=== PATIENT | female | born 1945 | race Caucasian/White ===

== ENCOUNTER 2020-02-20 19:18 | Inpatient (IN) | payer MEDICARE, OTHER ==
[2020-02-20 19:46] LABS: #Basophils 0.1 thou/uL (0.0-0.2); #Eosinphils 0.3 thou/uL (0.0-0.7); #Lymphocytes 1.8 thou/uL (1.20-3.40); %Basophils 0.7 % (0.0-1.0); %Eosinophils 2.1 % (0.0-10.0); %Lymphocytes 15.1 % (21.0-51.0); %Monocytes 8.2 % (0.0-10.0); %Neutrophils 73.9 % (42.0-75.0); Hemoglobin 11.9 g/dL (12.0-16.0); Mean Corpuscular HGB CONC 31.9 g/dL (32.0-36.0); Mean Corpuscular Hemoglobin 29.3 pg (27.0-31.0); Mean Corpuscular Volume 91.8 fL (78.0-98.0); Mean Platelet Volume 7.8 fL (7.4-10.4); Platelet Count 221 thou/uL (130-400); RBC Distribution Width 13.6 % (11.5-14.5); Red Blood Cell (RBC) Count 4.06 mill/uL (4.20-5.40); White Blood Cell (WBC) Count 12.2 thou/uL (4.8-10.8)
[2020-02-20 20:14] LABS: ALT (SGPT) 11 U/L (8-55); AST (SGOT) 12 U/L (5-34); Albumin 3.8 g/dL (3.4-4.8); Alkaline Phosphatase 119 U/L (40-110); Anion Gap 12 mmol/L (10-20); BUN (Urea Nitrogen) 25 mg/dL (9.8-20.1); Bilirubin, Total 0.4 mg/dL (0.2-1.2); Calc. Creatinine Clearance 0 mL/min (70-130); Calcium 9.3 mg/dL (7.8-10.44); Carbon Dioxide 20 mmol/L (23-31); Chloride 109 mmol/L (98-107); Estimated GFR-MDRD 46; Globulin 3.3 g/dL (2.4-3.5); Glucose 114 mg/dL (83-110); Potassium 4.2 mmol/L (3.5-5.1); Protein, Total 7.1 g/dL (6.0-8.3); Sodium 137 mmol/L (136-145)
--- NOTE | 2020-02-20 20:16 | RAD ---
XR Pelvis AP STANDARD History: Fall. Left hip injury Comparison: Radiograph 2018 Findings: Intertrochanteric fracture left femur with minimal varus angulation and moderate medial dis placement of the lesser trochanter. Impression: Intertrochanteric fracture left femur.
--- NOTE | 2020-02-20 20:17 | RAD ---
XR Hip Lt 2-3 View History: Fall with injury Comparison: None. Findings: Intertrochanteric fracture left femur with moderate medial displacement of the lesser troch anter. Moderate vascular calcifications. Left obturator ring appears be intact. Impression: Intertrochanteric fracture left femur.
--- NOTE | 2020-02-20 20:19 | RAD ---
XR Chest 1 View Portable History: Fall Comparison: Radiograph 2018 Findings: Heart size mildly enlarged. No confluent airspace consolidation, pneumothorax or effusion. Age-indeterminate right fifth through eighth rib fractures. No left-sided rib fractures. Impression: Age-indeterminate right fifth through eighth fractures otherwise no acute intrathoracic a bnormality. Given lack of adjacent extrapleural fluid, these may be chronic.
[2020-02-20] MEDS ORDERED: Ondansetron PF 4 MG/2 ML Vial ONE (20:38)
[2020-02-20] MEDS ORDERED: Morphine 4 MG/ML VIAL ONE ×2 (20:38→21:45)
--- NOTE | 2020-02-20 20:46 | CT ---
NONCONTRAST CT HEAD: 02/20/20 HISTORY: Injury after a fall. COMPARISON: None. FINDINGS: There is motion artifact present on several images. Diminished areas of attenuation are seen within the periventricular white matter which are nonspecifi c but likely reflective of chronic small vessel ischemic changes. There is no evidence of an acute co rtical infarction, hemorrhage, mass effect or midline shift. Mild cerebral volume loss is present. The ventricular system is normal in size, shape and position. There is trace amount of mucosal thickening in the ethmoidal air cells. Mastoid air cells are clear. No depressed calvarial fracture is seen. IMPRESSION: No acute intracranial abnormality demonstrated. POS: K[facility]
--- NOTE | 2020-02-20 21:26 | CT ---
NONCONTRAST CT CERVICAL SPINE 02/20/20 HISTORY: Injury after ground level fall. TECHNIQUE: Contiguous axial CT images are obtained through the cervical spine from the skull base to the T1-2 le chapo. Sagittal and coronal reformat images are provided. FINDINGS: There are multilevel degenerative changes seen throughout the cervical spine with narrowing of the in tervertebral disc spaces at multiple levels with end plate degenerative changes also present at multi ple levels. Facet hypertrophic changes are present. Moderate left sided neural foraminal narrowing is present at the C3-4 level with moderate to severe bilateral neural foraminal narrowing at C4-5 and C 5-6 levels related to prominent facet hypertrophic changes and posterior osteophyte formation. The ne ural foraminal narrowing at C4-5 level is also secondary to anterolisthesis of C4 on C5 with a degree of anterolisthesis measuring approximately 4 mm. Anterolisthesis is likely attributable to the facet degenerative changes at this level. Trace anterolisthesis of C7 on T1 is present again related to facet degenerative changes. The vertebral body heights are within normal limits, and no fracture is identified. Mild degrees of c entral canal narrowing are present at the C5-6 and C6-7 levels. The prevertebral soft tissues are within normal limits. There is heterogeneity of the right lobe of the thyroid gland with suggestion of multiple small hypod ense nodules. There is a dominant nodule with peripheral calcifications seen in the left lobe of the thyroid gland measuring 1.9 cm. Thyroid ultrasound is recommended. Vascular calcifications are seen in the carotid arteries. Emphysematous changes are seen in the visualized lung apices. IMPRESSION: 1. Hypodense nodule left lobe of the thyroid gland. Thyroid ultrasound is recommended for furthe r evaluation. 2. Multilevel degenerative changes in the cervical spine. 3. Mild anterolisthesis of C4 on C5 and trace anterolisthesis of C7 on T1 likely on the basis of facet degenerative changes. 4. No fracture is seen involving the cervical spine. POS: CARLA
[2020-02-20] MEDS ORDERED: Morphine 4 MG/ML VIAL SLOW IVP PRN (21:51)
[2020-02-20] MEDS ORDERED: hydrALAZINE 20 MG/ML VIAL SLOW IVP PRN (21:51)
[2020-02-20] MEDS ORDERED: Dextrose 50% Abboject 50 ML SYRINGE SLOW IVP PRN (21:51)
[2020-02-20] MEDS ORDERED: Dextrose 5% in Water 1,000 ML IV PRN (21:51)
[2020-02-20] MEDS ORDERED: Ondansetron PF 4 MG/2 ML Vial IVP PRN (21:51)
[2020-02-20] MEDS ORDERED: traMADol HCl 50 MG TAB PO PRN (21:55)
[2020-02-20] MEDS ORDERED: Acetaminophen 500 MG TAB PO SCH (22:00)
[2020-02-20 22:01] LABS: PTT 30.9 sec (22.9-36.1); Prothrombin Time 13.4 sec (12.0-14.7)
[2020-02-20 22:12] LABS: Magnesium 1.7 mg/dL (1.6-2.6); Phosphorus 2.9 mg/dL (2.3-4.7)
--- NOTE | 2020-02-20 23:15 | HP ---
TRAUMA SURGEON: Dr. Olivarez. CONSULTING PHYSICIAN: Dr. Middleton. HISTORY OF PRESENT ILLNESS: The patient is a 75-year-old female, who presented to the emergency department via EMS after she had a mechanical fall at home. The patient usually uses a walker. However, she was not using it and holding onto the back of the kitchen chair. She reports that her left leg gave out and she fell onto her left side. Denies hitting her head, anticoagulation use and loss of consciousness. The patient reports that she has been having some pain and numbness to her left lower extremity for which she was scheduled to receive lower back injections next week. She denies numbness and tingling in her bilateral upper and right lower extremity. Reports that the pain and tingling sensation is the same as before her fall in the left lower extremity. Denies chest pain, shortness of breath, abdominal pain, nausea, vomiting. REVIEW OF SYSTEMS: All additional 10-point review of systems negative except as indicated above. PAST MEDICAL HISTORY: Recently diagnosed with end-stage renal disease on dialysis for NSAID use. In the past few months, the patient has stopped dialysis, because she has had a significant improvement in her kidney disease. She also has an aortic aneurysm, chronic left lower extremity pain, hypertension and cardiac stents, status post [place]. PAST SURGICAL HISTORY: Appendectomy and cholecystectomy. SOCIAL HISTORY: The patient lives at home with her son and [id number]. She uses a walker to get around. 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 MEDICATIONS: 1. Hydralazine 50 mg t.i.d. 2. Metoprolol 100 mg b.i.d. 3. Dicyclomine. 4. Rosuvastatin. ALLERGIES: NO KNOWN DRUG ALLERGIES. PHYSICAL EXAMINATION: VITAL SIGNS: Temperature 98.7, pulse 72, respirations 16, oxygen saturation 95% on room air, blood pressure 126/76. PRIMARY SURVEY: Airway intact. Adequate breath sounds bilaterally. 2+ pulses in bilateral radials, femorals, and DPs. GCS 15. Gross motor and sensation intact. No lacerations bruising or external bleeding. SECONDARY SURVEY: HEAD: Normocephalic. No gross palpable skull deformities. EYES: Pupils 3-2, equal, round, reactive to light bilaterally. ENT: No signs of trauma. NECK: C-spine, no deformities. Nontender. C-collar not in place. CHEST: Nontender. No crepitus, no abrasions or ecchymosis. ABDOMEN: Soft, nontender, nondistended. PELVIS: Stable to palpation and nontender. RECTAL: Deferred. GENITOURINARY: Deferred. EXTREMITIES: Left lower extremity slightly shortened when compared to the right. There is tenderness over the anterior and lateral proximal thigh. No abrasions or ecchymosis. 2+ pulses noted in the bilateral radials, femorals and DPs. BACK/SPINE: No step-offs, deformities, or tenderness to palpation of the thoracic or lumbar spine. No abrasions or ecchymosis noted. NEUROLOGIC: 5/5 strength in bilateral slicing machine tender, plantar flexion, dorsiflexion, gross normal sensation x4 extremities. LABORATORY FINDINGS: White count 12.2, hemoglobin 11.7, hematocrit 37.2, platelets 221. Sodium 137, potassium 4.2, chloride 109, bicarb 20, BUN 25, creatinine 1.16, glucose 114, total bilirubin 0.4, AST 12, ALT 11, alkaline phosphatase 19, INR 1.2, PTT 30.9. DIAGNOSTIC FINDINGS: 1. CT of the brain demonstrates no acute intracranial abnormalities demonstrated. 2. X-ray of the pelvis demonstrates intertrochanteric fracture of the left femur. 3. CT of the C-spine demonstrates hypodense nodule of left lobe of the thyroid gland. Thyroid ultrasound is recommended. Multilevel degenerative changes in the cervical spine. Mild anterior listhesis of C4 on C5 and trace anterolisthesis of C7 on T1, likely on the basis of facet degenerative changes. No fractures seen including the cervical spine. 4. Chest x-ray demonstrates age-indeterminate right 5th through 8th fractures with no acute intrathoracic abnormalities, lack of adjacent extrapleural fluid. These findings may be chronic. 5. X-ray of the left hip demonstrates intertrochanteric fracture of the left hip. ASSESSMENT: 1. Status post mechanical fall from standing. 2. Left intertrochanteric femur fracture. 3. Chronic kidney disease, unknown new baseline BUN and creatinine. We will continue to monitor. 4. Thyroid nodule. 5. History of end-stage renal disease, on dialysis due to non-steroidal anti-inflammatory drugs, now resolved. 6. History of left lower extremity numbness, aortic aneurysm, hypertension, cardiac stents, and myocardial infarction. PLAN: The patient will be admitted to the Trauma Service. She will go to the regular surgical nursing floor. Dr. Middletno to evaluate the patient in the morning and take her to the OR for fixation of the left intertrochanteric femur fracture. She has received 1 L of IV fluids in the emergency department for a systolic in the 90s. We will hold off on additional fluid resuscitation and we will repeat blood work in the morning. Follow up magnesium, phosphorus and replace, if indicated. Restart patient's hydralazine and metoprolol with hold parameters. The patient will likely need placement at acute rehab facility postoperatively. This patient was discussed with Dr. Olivarez before this dictation. Job ID: [id number]
[2020-02-20 23:49] LABS: Bilirubin Negative (Negative); Blood, Urine Negative (Negative); Clarity Clear (Clear); Glucose, Urine (Dipstick) Normal (Negative); Ketone, Urine Negative (Negative); Leukocyte Negative Leu/uL (Negative); Nitrite Negative (Negative); Protein, Urine (Dipstick) 10 mg/dL (Neg-Trace); Specific Gravity, Urine 1.019 (1.002-1.036); Urobilinogen Normal mg/dL (Less than 2); pH, Urine 5.5 (5.0-9.0)
[2020-02-21] MEDS ORDERED: Sodium Phosphate 15 MMOL in Sodium Chloride 0.9% 250 ML 250 ML IVPB SCH (01:00)
[2020-02-21] MEDS ORDERED: Magnesium 2 GM/50 ML 2 GM in Premix Bag 1 BAG IVPB SCH (01:00)
[2020-02-21] MEDS: traMADol HCl 50 MG TAB PO PRN ×3 (01:51→20:27)
[2020-02-21] MEDS: Cyclobenzaprine 10 MG TAB PO PRN ×2 (01:51→22:48)
[2020-02-21] MEDS: Acetaminophen 500 MG TAB PO SCH ×5 (01:58→17:18)
[2020-02-21 02:12] VITALS: BMI 25.8
[2020-02-21 06:16] LABS: #Basophils 0.1 thou/uL (0.0-0.2); #Eosinphils 0.2 thou/uL (0.0-0.7); #Lymphocytes 2.3 thou/uL (1.20-3.40); #Monocytes 0.9 thou/uL (0.11-0.59); %Basophils 0.7 % (0.0-1.0); %Eosinophils 2.3 % (0.0-10.0); %Lymphocytes 27.3 % (21.0-51.0); %Monocytes 10.6 % (0.0-10.0); %Neutrophils 59.1 % (42.0-75.0); Hemoglobin 9.8 g/dL (12.0-16.0); Mean Corpuscular HGB CONC 31.7 g/dL (32.0-36.0); Mean Corpuscular Hemoglobin 29.3 pg (27.0-31.0); Mean Corpuscular Volume 92.3 fL (78.0-98.0); Mean Platelet Volume 8.1 fL (7.4-10.4); Platelet Count 179 thou/uL (130-400); RBC Distribution Width 13.6 % (11.5-14.5); Red Blood Cell (RBC) Count 3.36 mill/uL (4.20-5.40); White Blood Cell (WBC) Count 8.5 thou/uL (4.8-10.8)
[2020-02-21 06:36] LABS: Anion Gap 10 mmol/L (10-20); BUN (Urea Nitrogen) 22 mg/dL (9.8-20.1); Calc. Creatinine Clearance 54 mL/min (70-130); Calcium 8.4 mg/dL (7.8-10.44); Carbon Dioxide 23 mmol/L (23-31); Chloride 109 mmol/L (98-107); Estimated GFR-MDRD 48; Glucose 111 mg/dL (83-110); Magnesium 2.6 mg/dL (1.6-2.6); Phosphorus 4.2 mg/dL (2.3-4.7); Sodium 138 mmol/L (136-145)
[2020-02-21] MEDS ORDERED: CEFAZOLIN 2 GM in Premix Bag 1 BAG IVPB SCH (08:00)
[2020-02-21] MEDS ORDERED: Tranexamic Acid 1,000 MG in Sodium Chloride 0.9% 250 ML 250 ML IVPB SCH (08:00)
--- NOTE | 2020-02-21 08:24 | CON ---
DATE OF CONSULTATION: HISTORY OF PRESENT ILLNESS: Ms. Nieves is a pleasant 75-year-old female who presents after a ground level fall. The patient normally uses a walker, but she states she walked away and fell directly on to her left hip from mechanical fall. The patient denies loss of consciousness, is resting comfortably in bed. The patient lives with her daughter and her . PAST MEDICAL HISTORY: Includes end-stage renal disease, no longer on dialysis after resolution secondary to NSAIDs; aortic aneurysm; chronic lower extremity pain; hypertension; coronary artery disease; history of [place] 6 years ago. PAST SURGICAL HISTORY: Appendectomy as well as cholecystectomy. MEDICATIONS: 1. Hydralazine. 2. Toprol. 3. . ALLERGIES: NO KNOWN DRUG ALLERGIES. SOCIAL HISTORY: The patient lives with her daughter and son. She is ambulating with a walker. She is currently no longer working. REVIEW OF SYSTEMS: Negative for 10-point review except for as above. PHYSICAL EXAMINATION: VITAL SIGNS: This morning, temperature 97, heart rate 77, respirations 17, O2 saturation 96% on 2 L, blood pressure 108/69. GENERAL: Alert and oriented female in no acute distress. EXTREMITIES: Left lower extremity shows shortened and externally rotated limb. She has palpable pulses, good cap refill. She has no knee effusion. SKIN: Clean, dry, and intact. No wounds. MUSCULOSKELETAL: She has pain with internal and external rotation of her hip. Pelvis stable to AP and lateral compression. LABORATORY DATA: She has H and H of 9.8 and 31. INR of 1. She has chemistry, creatinine of 1.12 and a glucose of 111. Her UA is negative. COVID test is pending. The patient's hip x-ray shows a left intertrochanteric hip fracture. Her C-spine shows degenerative changes without signs of acute fracture, and her brain CT shows no signs of acute intracranial hemorrhaging. IMPRESSION: 1. Left intertrochanteric hip fracture. 2. Chronic kidney disease. 3. Coronary artery disease. 4. Mechanical fall. ASSESSMENT AND PLAN: The patient will be taken to the operating suite today for a left trochanteric fixation nail for left intertrochanteric hip fracture. I discussed with the patient to mobilize her that we would require fixation to get up and get her walking to improve her mortality. I discussed the risks and benefits of surgery to include pain, scar, bleeding, infection, decreased range of motion and strength, fracture above or below the stem, need for further surgeries, blood clots, loss of life or limb. The patient understands these risks and benefits and elected to proceed. The patient will need a rapid COVID test as one is currently pending. She will be taken to the operating suite this afternoon. We will give her preoperative antibiotics as well as tranexamic acid to decrease her transfusion rate. Job ID: [id number]
[2020-02-21] MEDS: Gabapentin 100 MG CAP PO SCH ×3 (08:42→20:27)
[2020-02-21] MEDS: Famotidine/PF 20 mg/2ml Vial SLOW IVP SCH (08:42)
[2020-02-21] MEDS: Senokot S 8.6-50 MG TAB PO SCH ×2 (08:43→20:27)
[2020-02-21] MEDS: Polyethylene Glycol 3350 17 GM Packet PO SCH (08:43)
[2020-02-21] MEDS ORDERED: Metoprolol Tartrate 100 MG TAB PO SCH (09:00)
[2020-02-21 09:34] LABS: SARS-CoV-2 NAA Rapid Test Not Detected (NotDetected)
[2020-02-21] MEDS ORDERED: Tranexamic Acid 1,000 MG/10 ML VIAL ONE (10:31)
[2020-02-21] MEDS ORDERED: Sodium Chloride 0.9% 100 ML ONE (10:32)
[2020-02-21] MEDS ORDERED: Ondansetron PF 4 MG/2 ML Vial ONE (10:46)
[2020-02-21] MEDS ORDERED: Lidocaine 1% PF 5 ML VIAL ONE (10:46)
[2020-02-21] MEDS ORDERED: Rocuronium Bromide 10 MG/ML (10ML VIAL) ONE (10:46)
[2020-02-21] MEDS ORDERED: PROPOFOL 200 MG/20 ML VIAL ONE (10:46)
[2020-02-21] MEDS ORDERED: Dexamethasone 20 MG/5 ML VIAL ONE (10:46)
[2020-02-21] MEDS ORDERED: Glycopyrrolate 0.2 MG/ML 5 ML SYRINGE ONE (10:46)
[2020-02-21] MEDS ORDERED: PHENYLEPHRINE-NS 100 MCG/ML 10 ML SYRINGE ONE (10:46)
[2020-02-21] MEDS ORDERED: EPHEDRINE 25 MG/5 ML SYRINGE ONE (10:46)
[2020-02-21] MEDS ORDERED: Phenylephrine 10 MG/ML VIAL ONE (10:57)
[2020-02-21] MEDS ORDERED: Fentanyl 100 MCG/2 ML VIAL ONE ×3 (10:57→12:38)
[2020-02-21] MEDS ORDERED: Promethazine HCl 25 MG/ML VIAL IM PRN (12:19)
[2020-02-21] MEDS ORDERED: Promethazine HCl 25 MG/ML VIAL SLOW IVP PRN (12:19)
[2020-02-21] MEDS ORDERED: Ondansetron HCl/PF 4 MG/2 ML Vial IVP PRN (12:19)
[2020-02-21] MEDS ORDERED: PACU-Morphine 4MG/ML VIAL SLOW IVP PRN (12:19)
--- NOTE | 2020-02-21 13:43 | EKG ---
Test Reason : Blood Pressure : / mmHG Vent. Rate : 070 BPM Atrial Rate : 070 BPM P-R Int : 126 ms QRS Dur : 144 ms QT Int : 448 ms P-R-T Axes : 050 -04 049 degrees QTc Int : 483 ms Sinus rhythm with occasional Premature ventricular complexes Left bundle branch block Abnormal ECG Confirmed by LEILANI HARRIS DO ([id number]), purchase request editor OLIVER PLATT ([id number]) on 02/21/2020 1:43:23 PM Referred By: Confirmed By:LEILANI HARRIS DO
--- NOTE | 2020-02-21 14:24 | RAD ---
EXAM: LEFT HIP TWO VIEWS: 02/21/20 HISTORY: ORIF, trochanteric nail. FINDINGS: Left hip nail and compression screw placed stabilizing a comminuted intertrochanteric fracture with i mprovement in position and alignment. IMPRESSION: Stabilization comminuted intertrochanteric fracture with improved position and alignment. POS: OFF
--- NOTE | 2020-02-21 16:58 | PRG ---
DATE OF SERVICE: 02/21/2020 SUBJECTIVE: Ms. Nieves is a 75-year-old female presenting to the emergency department. In ER, she is post injury day #1, postop day 0 after ORIF of a left intertrochanteric femur fracture repair by Dr. Middleton. The patient was found in the room. Her pain is controlled. She is hemodynamically stable. Surgery went well. No complaints. Of note, she has mild hypotension after given morphine postoperatively, however, she is still producing urine. Mental status is preserved. OBJECTIVE: VITAL SIGNS: Today, temperature is 97.9, blood pressure is 94/62, heart rate is 68, breathing 20 times per minute, saturating 97% on 2 L oxygen nasal cannula. GENERAL: A 75-year-old female, lying semi-Hawthorne's. No acute distress. HEENT: Normocephalic, atraumatic. Trachea is midline. No JVD is appreciated. RESPIRATORY: Equal rise and fall. Bilateral breath sounds. Clear to auscultation in upper and lower lobes bilaterally. CARDIOVASCULAR: Regular rate and rhythm. ABDOMEN: Soft and nontender. Pelvis is stable. MUSCULOSKELETAL: She has surgical scar about the left hip. Dressing is dry. EXTREMITIES: She is able to move her extremities. She has warm distal extremities. Good sensation. NEURO: Alert and oriented to person, place, time, and event. PSYCH: Normal mood and affect. LABORATORY DATA: Today white blood cell count 8.5, platelets 179, hemoglobin and hematocrit 9.8 and 31.0 respectively. Sodium is 138, potassium 4.0, chloride is 109, CO2 is 23, BUN is 22, creatinine 1.12, glucose is 111, phos is 4.2, and Mag is 2.6. ASSESSMENT: 1. Left intertrochanteric hip fracture, status post ORIF. 2. Acute traumatic pain. 3. 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 4. Thyroid nodule. 5. History of aortic aneurysm, hypertension, cardiac stents, myocardial infarction. PLAN: 1. We will continue all supportive care. 2. Continue saline at 75 mL/h for the remainder 1 L that is there. She appears a little volume contracted and wants to protect her kidneys given her previous ESRD. The patient is still producing good urine. 3. We will remove the Roy catheter. 4. Continue pain control. 5. We will continue home medications. Holding antihypertensives given the borderline hypertension today. 6. PT, OT ordered to the patient. 7. Rehab screen has been placed. I have updated the patient. There are no family at the bedside to update. Coordinate care with the bedside RN. Job ID: [id number] MTDD
[2020-02-21] MEDS: CEFAZOLIN 2 GM in Premix Bag 1 BAG IVPB SCH (17:20)
--- NOTE | 2020-02-21 19:33 | OP ---
DATE OF PROCEDURE: 02/21/2020 PREOPERATIVE DIAGNOSIS: Left intertrochanteric hip fracture. POSTOPERATIVE DIAGNOSIS: Left intertrochanteric hip fracture. PROCEDURE PERFORMED: Left short intramedullary trochanteric fixation nail. DRONE SOFTWARE DEVELOPMENT ENGINEER: Tony Gallegos PA-C ANESTHESIOLOGIST: Dr. Fragoso. ANESTHESIA: The patient received general endotracheal intubation. ESTIMATED BLOOD LOSS: 100 mL. TOURNIQUET TIME: None. ANTIBIOTICS: Ancef 2 g and TXA 1 g. The patient had a Synthes 11 x 170 mm TFNA nail with a 95 mm fenestrated screw and a 5 mm distal locking screw. COMPLICATIONS: None. HISTORY OF PRESENT ILLNESS: Ms. Nieves is a 75-year-old female, status post ground level fall. The patient has history of recent kidney disease, coronary artery disease. Now she uses a walker to ambulate. The patient had intertrochanteric hip fracture. I discussed the risks and benefits of surgery, pain, scar, bleeding, infection, damage to vital structures, decreased range of motion or strength, need for further surgeries, failure of procedures despite surgical intervention, loss of life or limb, risk of blood clots. The patient understood the risks and benefits and elected to proceed. DESCRIPTION OF PROCEDURE: After informed consent was obtained in the preoperative holding area, the patient received preoperative antibiotics, was taken to the operative suite and positioned appropriately on the fracture table, and after adequate anesthesia was obtained, the patient was positioned appropriately. The left hip was then visualized using fluoroscopy. In-line longitudinal traction and reduction maneuvers were performed until near anatomic reduction was obtained. The left hip and lower extremity were then prepped and draped in usual sterile fashion. Prior to incision, a time-out was called and all members of the surgical team agreed upon site, surgeon, and patient. Once this was completed, a longitudinal incision was made 2 fingerbreadths above the tip of the trochanter noted by palpation. The IT band was then incised sharply. The tip of the trochanter was palpated and using the posterior 1/3 of the trochanter, the guidepin was then placed down the length of the canal. This was confirmed in 2 planes with fluoroscopy. The 15 mm opening reamer was then used to open the tip of the trochanter and the nail was then slid down and malleted firmly into place. The outrigger was then used to place the lag screw guide pin. We chose posterior inferior screw placement and this was over reamed with the lateral cortex reamer and intramedullary reaming was carried up to the appropriate length. The pin was then used to guide the lag screw in place and we used minimal reduction in compression to accomplish this. Once completed, the guidepin was then removed and the outrigger was used to place the distal interlocking screw. We chose a 2-incision technique to perform this. The locking gate was closed on the lag screw. The outrigger was removed and final fluoroscopic films were obtained in AP, lateral, and a 20-degree trauma oblique. Happy with that anatomic reduction, both incisions were copiously irrigated with normal saline and primary closure was accomplished with a 0 in the IT band and 2-0 in subcutaneous layer and stainless steel royal were used to reapproximate the skin. Sterile dressings were applied to both incisions. Procedure was terminated without any complications. The patient was removed from the fracture table, taken to the recovery room in stable condition. Job ID: [id number]
[2020-02-21] MEDS: Rosuvastatin 20 MG TAB PO SCH (20:27)
[2020-02-22] MEDS: CEFAZOLIN 2 GM in Premix Bag 1 BAG IVPB SCH (01:07)
[2020-02-22] MEDS: Acetaminophen 500 MG TAB PO SCH ×5 (01:07→23:30)
[2020-02-22] MEDS: Morphine 2 MG/ML VIAL SLOW IVP PRN ×2 (01:07→13:18)
[2020-02-22] MEDS ORDERED: Morphine 4 MG/ML VIAL SLOW IVP SCH (03:15)
[2020-02-22] MEDS: Senokot S 8.6-50 MG TAB PO SCH ×2 (08:31→20:15)
[2020-02-22] MEDS: Famotidine/PF 20 mg/2ml Vial SLOW IVP SCH (08:31)
[2020-02-22] MEDS: Gabapentin 100 MG CAP PO SCH ×4 (08:31→20:15)
[2020-02-22] MEDS: Polyethylene Glycol 3350 17 GM Packet PO SCH (08:31)
[2020-02-22] MEDS: Metoprolol Tartrate 100 MG TAB PO SCH ×2 (09:48→20:12)
[2020-02-22] MEDS: Aspirin 81 mg Enteric Coated Tablet PO SCH ×2 (09:48→20:15)
[2020-02-22] MEDS: traMADol HCl 50 MG TAB PO SCH ×3 (12:04→23:30)
[2020-02-22] MEDS: Cyclobenzaprine 10 MG TAB PO PRN (13:17)
[2020-02-22] MEDS ORDERED: Ibuprofen 600 MG TAB PO SCH (14:00)
[2020-02-22 15:23] LABS: #Lymphocytes 1.2 thou/uL (1.20-3.40); #Monocytes 1.4 thou/uL (0.11-0.59); #Neutrophils 10.4 thou/uL (1.40-6.50); %Basophils 0.1 % (0.0-1.0); %Eosinophils 0.1 % (0.0-10.0); %Lymphocytes 9.1 % (21.0-51.0); %Monocytes 10.8 % (0.0-10.0); Hemoglobin 8.8 g/dL (12.0-16.0); Mean Corpuscular HGB CONC 32.5 g/dL (32.0-36.0); Mean Corpuscular Hemoglobin 29.8 pg (27.0-31.0); Mean Corpuscular Volume 91.7 fL (78.0-98.0); Mean Platelet Volume 7.9 fL (7.4-10.4); Platelet Count 163 thou/uL (130-400); RBC Distribution Width 13.6 % (11.5-14.5); Red Blood Cell (RBC) Count 2.94 mill/uL (4.20-5.40)
--- NOTE | 2020-02-22 15:39 | PRG ---
DATE OF SERVICE: 02/22/2020 SUBJECTIVE: This is a 75-year-old female postop day #1, post injury day #2, status post fall with left intertrochanteric femur fracture repair by Dr. Middleton. The patient has restless legs and difficult night until she got her medications. States that she is better and she is found sitting up in bed, tolerating a diet. No acute distress. Remains hemodynamically stable. However, her blood pressure has been lower than her baseline since the OR. She is producing urine. OBJECTIVE: VITAL SIGNS: Temperature is 98.0, blood pressure 121/70, heart rate is 75, respiratory rate is 16, and saturating 94% on her on 1.5 L nasal cannula. GENERAL: A 75-year-old female, sitting up, in no acute distress. HEENT: Normocephalic, atraumatic. Trachea is midline. RESPIRATORY: Equal rise and fall. Bilateral breath sounds. Clear. CARDIOVASCULAR: Regular rate and rhythm. ABDOMEN: Soft, nontender. PELVIS: Stable. MUSCULOSKELETAL: She has a surgical incision with a dry dressing. No edema. NEUROLOGIC: Alert and oriented to person, place, time, and event. PSYCHIATRIC: Normal mood and affect. SKIN: Warm and dry. DIAGNOSTIC DATA: There is no laboratory data to review today. ASSESSMENT AND PLAN: 1. Left intertrochanteric hip fracture, status post open reduction and internal fixation. 2. Acute traumatic pain. 3. Chronic kidney disease. 4. Thyroid nodule. 5. History of aortic aneurysm, hypertension, stents, and myocardial infarction. We will continue supportive care. Check chemistry and cbc now Stop NSAIDs given nephropathy from NSAIDs in past. Creatinine is acceptable last check. Reduce metoprolol to 50 b.i.d. from 100 b.i.d. with hold parameters. Continue patient's home ropinirole. Continue pain regimen. Remove Roy catheter today. We will repeat laboratories in the morning. Continue to work with physical therapy and occupational therapy. Rehab screen has been placed. Continue all other supportive care. I have updated the patient at the bedside and coordinated with the bedside RN. No family to update. Job ID: [id number] MTDD
[2020-02-22 15:43] LABS: Anion Gap 12 mmol/L (10-20); BUN (Urea Nitrogen) 17 mg/dL (9.8-20.1); Calc. Creatinine Clearance 54 mL/min (70-130); Calcium 8.2 mg/dL (7.8-10.44); Carbon Dioxide 20 mmol/L (23-31); Chloride 109 mmol/L (98-107); Estimated GFR-MDRD 47; Glucose 104 mg/dL (83-110); Potassium 4.5 mmol/L (3.5-5.1); Sodium 136 mmol/L (136-145)
[2020-02-22] MEDS: Rosuvastatin 20 MG TAB PO SCH (20:15)
[2020-02-23] MEDS: Morphine 2 MG/ML VIAL SLOW IVP PRN (01:10)
[2020-02-23 05:09] LABS: #Basophils 0.1 thou/uL (0.0-0.2); #Eosinphils 0.3 thou/uL (0.0-0.7); #Lymphocytes 1.9 thou/uL (1.20-3.40); #Monocytes 1.1 thou/uL (0.11-0.59); #Neutrophils 7.2 thou/uL (1.40-6.50); %Basophils 0.5 % (0.0-1.0); %Eosinophils 2.8 % (0.0-10.0); %Lymphocytes 17.7 % (21.0-51.0); %Monocytes 10.2 % (0.0-10.0); %Neutrophils 68.9 % (42.0-75.0); Hemoglobin 8.6 g/dL (12.0-16.0); Mean Corpuscular Hemoglobin 29.3 pg (27.0-31.0); Mean Corpuscular Volume 91.8 fL (78.0-98.0); Platelet Count 164 thou/uL (130-400); RBC Distribution Width 13.8 % (11.5-14.5); Red Blood Cell (RBC) Count 2.92 mill/uL (4.20-5.40); White Blood Cell (WBC) Count 10.5 thou/uL (4.8-10.8)
[2020-02-23 05:30] LABS: Anion Gap 12 mmol/L (10-20); BUN (Urea Nitrogen) 18 mg/dL (9.8-20.1); Calc. Creatinine Clearance 55 mL/min (70-130); Calcium 8.5 mg/dL (7.8-10.44); Carbon Dioxide 21 mmol/L (23-31); Chloride 111 mmol/L (98-107); Estimated GFR-MDRD 49; Glucose 94 mg/dL (83-110); Magnesium 1.9 mg/dL (1.6-2.6); Sodium 139 mmol/L (136-145)
[2020-02-23 05:31] LABS: Phosphorus 2.5 mg/dL (2.3-4.7)
[2020-02-23] MEDS: traMADol HCl 50 MG TAB PO SCH ×4 (05:40→23:38)
[2020-02-23] MEDS: Acetaminophen 500 MG TAB PO SCH ×4 (05:40→23:38)
[2020-02-23] MEDS: Cyclobenzaprine 10 MG TAB PO PRN ×2 (08:20→16:37)
[2020-02-23] MEDS: Polyethylene Glycol 3350 17 GM Packet PO SCH (08:20)
[2020-02-23] MEDS: Metoprolol Tartrate 100 MG TAB PO SCH ×2 (08:21→21:11)
[2020-02-23] MEDS: Senokot S 8.6-50 MG TAB PO SCH ×2 (08:22→21:12)
[2020-02-23] MEDS: Gabapentin 100 MG CAP PO SCH ×3 (08:22→21:10)
[2020-02-23] MEDS: Aspirin 81 mg Enteric Coated Tablet PO SCH ×2 (08:25→21:09)
[2020-02-23] MEDS: Famotidine/PF 20 mg/2ml Vial SLOW IVP SCH (08:35)
[2020-02-23] MEDS ORDERED: rOPINIRole HCl 2 MG TAB PO PRN (13:28)
--- NOTE | 2020-02-23 16:17 | PRG ---
DATE OF SERVICE: 02/23/2020 The patient was seen on morning rounds with Dr. Adam Mathis. SUBJECTIVE: Ms. Nieves is a 75-year-old female, status post left intertrochanteric hip fracture, status post repair. States that her pain is somewhat better. She has had trouble with restless legs. She is sitting up in bed, tolerating a diet. No acute distress. She is wanting to go home. The patient states that her pain has been under control. No events overnight. PHYSICAL EXAMINATION: VITAL SIGNS: Temperature is 98.5, blood pressure 131/81, heart rate 74, breathing 14 times per minute, 95% on room air. GENERAL: A 75-year-old female, sitting up, no acute distress. HEENT: Normocephalic, atraumatic. Trachea is midline. RESPIRATORY: Equal rise and fall. Bilateral breath sounds. Clear to auscultation in upper and lower lobes bilaterally. CARDIOVASCULAR: Regular rate and rhythm. No murmur. ABDOMEN: Soft and nontender. PELVIS: Stable. MUSCULOSKELETAL: She is able to move her extremities. Her dressing is dry. She has warm extremities. PSYCH: Normal mood and affect. NEUROLOGIC: Alert and oriented to person, place, time, and event. DIAGNOSTIC CRITERIA: White blood cell count of 10.5, platelets are 164, hemoglobin and hematocrit 8.6 and 26.8 respectively. Sodium is 139, potassium 5.0, chloride is 111, CO2 is 21, BUN 18, creatinine 1.10, glucose is 94, calcium is 8.5, mag is 1.9, phos is 2.5. ASSESSMENT AND PLAN: 1. Left intertrochanteric hip fracture, status post ORIF postop day #2. 2. Acute traumatic pain, improving. 3. Chronic kidney disease, stable. 4. Thyroid nodule. Will need followup. 5. History of aortic aneurysm, hypertension, stents, and myocardial infarction. PLAN: 1. Continue supportive care. 2. Continue pain control as needed. 3. Order for home health as the patient has refused inpatient rehab. 4. We will have rehab screen in the event the patient changed her mind. 5. We have reduced her metoprolol to 50 b.i.d. secondary to mild hypotension. If this remains, we will keep the same dose. If she goes home will be the same dose. 6. Continue to work with PT and OT. The patient has walked in the halls, insisted to get out. I have updated the patient at bedside and answered all questions. The patient was seen again by Dr. Adam Ortizju reference and evaluation, and concern is the patient is refusing rehab placement. She states she wants to go home. She has physical therapy. I have advised that rehab may be beneficial for her to get strong to be able to go home safely as she has fall already. She verbalized understanding the same. She is considering the same, however, she does want to go home. That is the patient's wish. She will accept the risk. I will send her home at her wish with prescriptions. I have updated the patient's nurse at bedside. Job ID: [id number]
[2020-02-23] MEDS: Rosuvastatin 20 MG TAB PO SCH (21:12)
--- NOTE | 2020-02-24 01:53 | PRG ---
DATE OF SERVICE: 02/23/2020 SUBJECTIVE: The patient was seen this evening during rounds. She was lying in bed, resting comfortably and asleep with no signs of acute distress. Nursing reported her pain was well controlled and she had no acute events. OBJECTIVE: VITAL SIGNS: Temperature 98.2, pulse 75, respirations 16, oxygen saturation 96% on 2 L nasal cannula, and blood pressure 110/63. GENERAL: Well-appearing, elderly female, lying in bed, sleeping with no signs of acute distress. PULMONARY: Equal chest rise and fall. No signs of acute respiratory distress. ASSESSMENT: 1. Status post mechanical fall from standing. 2. Left intertrochanteric femur fracture, status post repair. 3. Acute kidney injury on chronic kidney disease, improved. 4. History of myocardial infarction, stents, end-stage renal disease, previously on dialysis, hypertension, abdominal aortic aneurysm, and lower extremity numbness and tingling. PLAN: Continue current diet and pain regimen. Continue physical and occupational therapy. The patient is pending discharge to rehab versus home with home health. She is ready for discharge at this time. Job ID: [id number]
[2020-02-24] MEDS: Acetaminophen 500 MG TAB PO SCH ×2 (05:04→11:52)
[2020-02-24] MEDS: traMADol HCl 50 MG TAB PO PRN ×2 (05:04→16:48)
[2020-02-24] MEDS: traMADol HCl 50 MG TAB PO SCH ×2 (05:04→11:52)
[2020-02-24] MEDS: Gabapentin 100 MG CAP PO SCH ×2 (09:00→16:49)
[2020-02-24] MEDS: Cyclobenzaprine 10 MG TAB PO PRN (10:38)
[2020-02-24] MEDS: Ascorbic Acid 500 mg Chewable Tablet PO SCH ×2 (10:39→16:49)
[2020-02-24] MEDS: Aspirin 81 mg Enteric Coated Tablet PO SCH (10:39)
[2020-02-24] MEDS: Ferrous Sulfate 325 MG TAB PO SCH ×2 (10:39→16:51)
[2020-02-24] MEDS: Metoprolol Tartrate 100 MG TAB PO SCH (10:40)
[2020-02-24] MEDS: Famotidine/PF 20 mg/2ml Vial SLOW IVP SCH (10:41)
[2020-02-24] MEDS: Senokot S 8.6-50 MG TAB PO SCH (10:41)
[2020-02-24] MEDS: Polyethylene Glycol 3350 17 GM Packet PO SCH (10:41)
[2020-02-24 16:13] VITALS: BP 96/59; TEMP 99.3
--- NOTE | 2020-02-25 13:04 | PQF ---
CLINICAL DOCUMENTATION CLARIFICATION FORM: Dear : Pollo Olivarez MD Date / Time: 02/25/2020 Please exercise your independent, professional judgment in responding to the clarification form. Clinical indicators are provided on the bottom of this form for your review Please check appropriate box(es): to clarify the CKD stage [ ] CKD stage 1 [ ] CKD stage 2 [ ] CKD stage 3 [ ] CKD stage 4 [ ] CKD stage 5 [ ] ESRD [ ] Other diagnosis (Please specify if any) [ ] Unable to determine Physician Signature: Date/Time: For continuity of documentation, please document condition throughout progress notes and discharge summary. Thank You. To be completed by CDI/Coding staff for physician review: Present Clinical Indicators - Signs / Symptoms / Labs Results and Location in Medical Record [x ] Recently diagnosed with end stage renal disease on dialysis for NSAID use. H&P on 02/19 [ x ] In the past few months, the patient has stopped dialysis, because she has had a significant improvement in her kidney disease H&P on 02/19 [ x ] Chronic kidney disease. stable Progress notes on 02/22 [ x ] History of end-stage renal disease on dialysis to non-steroidal anti inflammatory drugs, now resolved H&P on 02/19 [ x ] Acute kidney injury on chronic kidney disease, improved Progress notes on 02/23 [ x ] Cr-1.12, GFR-46 Laboratory on 02/19 Present Risk Factors Results and Location in Medical Record [ x ] Aged person 75 yrs H&P on 02/19 [ x ] Hypertension H&P on 02/19 [ ] [ ] Present Treatments Results and Location in Medical Record [ x] Continue saline at75ml/ for the remainder1 L that is there. Progress notes on 02/20 [ ] [ ] [ ] CDS/Certified Nuclear Medicine Technologist Signature: AAS Phone #: Date/Time: 02/25/2020 This is a permanent part of the Medical Record [facility]
--- NOTE | 2020-02-25 15:11 | DIS ---
DATE OF ADMISSION: 02/20/2020 DATE OF DISCHARGE: 02/24/2020 CONSULTS: Orthopedic Surgery, Dr. Middleton. DISCHARGE ATTENDING: Dr. Mathis. PROCEDURES: On 02/21/2020, left short intramedullary trochanteric nail fixation. PRIMARY DIAGNOSES: Mechanical fall from standing, left intertrochanteric femur fracture, chronic kidney disease, and thyroid nodule. SECONDARY DIAGNOSES: End-stage renal disease due to NSAIDs, previously on dialysis, resolved; history of left lower extremity numbness; aortic aneurysm; hypertension; cardiac stents; and myocardial infarction. DISCHARGE MEDICATIONS: 1. Tramadol 50 mg p.o. q.6 hours, #40, p.r.n. pain. 2. Acetaminophen 1000 mg p.o. q.6 hours. 3. Vitamin C 500 mg p.o. b.i.d. 4. Aspirin 81 mg p.o. b.i.d., VTE prophylaxis. 5. Flexeril 5 mg p.o. 3 times a day p.r.n. muscle spasms. 6. Bentyl 20 mg p.o. q.i.d. 7. Ferrous sulfate 325 mg p.o. b.i.d. with meals. 8. Gabapentin 200 mg p.o. 3 times a day. 9. Hydralazine 50 mg p.o. 3 times a day. 10. Metoprolol succinate 100 mg p.o. b.i.d. 11. Ropinirole HCl 2 mg p.o. p.r.n. 12. Crestor 40 mg p.o. daily. 13. Senokot 2 tabs b.i.d. p.r.n. constipation. DISCONTINUED MEDICATIONS: No discontinued medications. HISTORY OF PRESENT ILLNESS AND HOSPITAL COURSE: This is a 75-year-old female, who presented to the emergency room by EMS after mechanical fall at home. The patient uses a walker usually to ambulate. The patient was not using it and holding on to a kitchen chair when her leg gave out causing her to fall onto her left side. She denied hitting her head or being on any anticoagulation. The patient denied any loss of consciousness. The patient does have chronic back pain, in which she receives injections, which is due next week. She does have some chronic numbness to her left lower extremity from this back pain. The patient had denied any shortness of breath, chest pain, or dizziness before falling. The patient's pain was controlled pre and postop. The patient was seen by Dr. Mathis and examined. The patient had no complaints on the day of discharge. The patient's vital signs were stable and her exam was unremarkable including cardiopulmonary and GI exam. The patient was deemed stable for discharge to inpatient rehab at [facility], for continued physical and occupational therapy. DISPOSITION: Stable. DISCHARGE INSTRUCTIONS: LOCATION: [facility]. DIET: Regular diet as tolerated. ACTIVITY: Weightbearing as tolerated. FOLLOWUP: Follow up with Dr. Middleton in 10 days. Follow up with primary care physician regarding thyroid nodule, needing an ultrasound. Also review of blood pressure medication and management. No need to follow up with Trauma Services. Job ID: [id number]
== END 2020-02-24 18:20 | DRG 480 ==
LOC: ERS 19:18 → SJJU 21:55
PROVIDERS: ADMIT Surgery; ATTEND Surgery
PROC: 0QS706Z Reposition Left Upper Femur with Intramedullary Internal Fixation Device, Open Approach (ICD-10-PCS; principal; 2020-02-21)
DX: S72.142A Displaced intertrochanteric fracture of left femur, initial encounter for closed fracture (principal); N18.6 End stage renal disease; S22.42XA Multiple fractures of ribs, left side, initial encounter for closed fracture; N17.9 Acute kidney failure, unspecified; I12.0 Hypertensive chronic kidney disease with stage 5 chronic kidney disease or end stage renal disease; F32.9 Major depressive disorder, single episode, unspecified; I25.10 Atherosclerotic heart disease of native coronary artery without angina pectoris; E04.1 Nontoxic single thyroid nodule; Z90.49 Acquired absence of other specified parts of digestive tract; Z79.899 Other long term (current) drug therapy; Z99.2 Dependence on renal dialysis; I25.2 Old myocardial infarction; Z95.5 Presence of coronary angioplasty implant and graft; I95.9 Hypotension, unspecified; Z20.828 Contact with and (suspected) exposure to other viral communicable diseases; W01.0XXA Fall on same level from slipping, tripping and stumbling without subsequent striking against object, initial encounter; Z79.1 Long term (current) use of non-steroidal anti-inflammatories (NSAID)
CPT/HCPCS: 36415; 51702; 70450; 71045; 72125; 72170; 76000; 80048; 80053; 81003; 83735; 84100; 85025; 85610; 85730; 86850; 86900; 86901; 93005; 96361; 96374; 96375; 96376; 99204; C1713; G0463; J0690; J1100; J2270; J2370; J2405; J2704; J3010; J3475; J3490; J7050; S0028; U0002

== ENCOUNTER 2022-02-26 12:30 | Emergency (ER) | payer MEDICARE ==
[2022-02-26] MEDS ORDERED: Morphine 4 MG/ML VIAL ONE (12:59)
== END 2022-02-26 14:25 | disposition home or self-care (01) ==
LOC: ERS 12:30
DX: S29.9XXA Unspecified injury of thorax, initial encounter (principal); I11.0 Hypertensive heart disease with heart failure; I50.9 Heart failure, unspecified; W06.XXXA Fall from bed, initial encounter
CPT/HCPCS: 71250; 74177; 96372; J2270